=== PATIENT | male | born 1990 | race Caucasian/White ===

== ENCOUNTER 2020-08-05 19:58 | Emergency (ER) | payer OTHER, SELFPAY ==
[2020-08-05 20:46] VITALS: BP 134/48; PULSE 79; RESP 16; TEMP 36.6; O2SAT 98; BMI 27.3
--- NOTE | 2020-08-05 21:25 | ED_ITS ---
HPI - Skin/Abscess/Foreign Bdy General Chief complaint: Skin/Abscess/Foreign Body Stated complaint: abcess Time Seen by Provider: 08/05/20 21:25 Source: patient Mode of arrival: ambulatory Limitations: no limitations History of Present Illness HPI narrative: Cyst on my back for the past 3 days becoming tender. No fever, no chills. Related Data Previous Rx's Medication Instructions Recorded doxycycline hyclate 100 mg PO BID #14 cap 08/05/20 Allergies Allergy/AdvReac Type Severity Reaction Status Date / Time No Known Allergies Allergy Verified 08/05/20 20:51 [No Known Allergies*] Review of Systems Review of Systems: All other systems are reviewed and are negative Constitutional: Reports as per HPI and Reports no additional constitutional complaints Eyes: Reports as per HPI and Reports no additional eye complaints Reports system reviewed and no additional complaints, except as documented Cardiovascular: Reports as per HPI and Reports no additional cardiovascular complaints Respiratory: Reports as per HPI and Reports no additional respiratory complaints Gastrointestinal: Reports as per HPI and Reports no additional gastrointestinal complaints Genitourinary: Reports no additional female genitourinary complaints Musculoskeletal: Reports no additional musculoskeletal complaints Skin/Breast: Reports system reviewed and no additional complaints, except as docu Psychiatric: Reports no additional psychiatric complaints Endocrine: Reports no additional endocrine complaints Hematologic/Lymphatic: Reports no additional hematologic/lymphatic complaints Allergic/Immunologic: Reports no additional allergic/immunologic complaints Reports system reviewed and no additional complaints, except as documented and Reports Abnormal speech present [facility] Past Medical History Medical History No known health problems Social History Social History Advance Directives: No Advance Directives Information Provided: No Physical Exam Vital Signs: Vital Signs: Last Vital Signs Temp 97.9 F 08/05/20 20:46 Pulse 79 08/05/20 20:46 Resp 16 08/05/20 20:46 BP 134/48 L 08/05/20 20:46 Pulse Ox 98 08/05/20 20:46 Body Mass Index 27.3 Vital signs have been reviewed as normal and appeared to be correct. Blood pressure normal. Heart rate normal. Respiration rate normal. Temperature normal. Oxygen saturation normal. Appearance: Alert. Oriented X3. No acute distress. Head: Normal external exam. Normocephalic. Atraumatic. No Hughes signs noted. No raccoon eyes noted Eyes: PERRLA. EOMI. Conjunctiva and sclera normal. Eyelids normal. ENT: EAC normal. TM's Normal. Pharynx normal. Uvula midline. Moist mucous membranes. No trismus noted. No drooling noted. No muffled voice noted. Neck: Normal inspection. Neck supple. FROM. No adenopathy. Thyroid Normal. No meningeal signs. No neck mass noted. CVS: Normal heart rate and rhythm. Heart sound normal. No murmurs noted. Pulses normal throughout. Respiratory: No respiratory distress. Painless inspiration. Breath sounds normal. No wheezes/rales/rhonchi noted. Chest nontender. No accessory muscle usage noted or decreased air movement noted. Abdomen: Soft and nontender. Bowel sounds normal in all 4 quadrants. No distention noted. No organomegaly noted. No visible injury noted. Back: No CVA tenderness. Full range of motion noted. 3 x 5 cm area of soft cyst, with mild tenderness to touch, no discharge, no redness of the skin above it, no hotness or redness of the skin above it. Tarpley to be infected sebaceous cyst Skin: Skin warm and dry. Normal skin color. Normal skin turgor. No rashes/lesions/lacerations noted. Extremities: No lower extremity edema. Extremities exhibit normal range of motion. Extremities nontender. Neuro: Oriented X 3. No motor deficit. No sensory deficit. Reflexes normal. Course Course Course Narrative: Assessment and plan. 30-year-old male with infected sebaceous cyst. Will start patient on doxycycline and referred to General surgery for complete excision of the cyst. Discharge Plan Discharge Clinical Impression: Infected sebaceous cyst of skin Patient Disposition: Home, Self-Care Instructions: Cyst (ED) Prescriptions: New doxycycline hyclate 100 mg capsule 100 mg PO BID Qty: 14 RF: 0 Referrals: Brendon Donald MD [Physician] - 2 days
== END 2020-08-05 22:06 | disposition home or self-care (01) ==
PROVIDERS: Emergency Provider Emergency Medicine; PCP Family Medicine
DX: L72.3 Sebaceous cyst (principal); M54.9 Dorsalgia, unspecified
CPT/HCPCS: 99283

== ENCOUNTER 2020-08-07 15:45 | Outpatient (REF) | payer OTHER, SELFPAY | END 2020-08-07 15:46 | disposition home or self-care (01) | LOC: HO.LNP 15:45 | PROVIDERS: PCP Family Medicine; Visit Provider Surgery | DX: L72.0 Epidermal cyst (principal) | CPT/HCPCS: 11403; 99202 ==

== ENCOUNTER 2020-08-08 10:24 | Outpatient (REF) | payer SELFPAY | END 2020-08-08 10:25 | disposition home or self-care (01) | LOC: HO.LAB 10:24 | PROVIDERS: Visit Provider Surgery | DX: L72.0 Epidermal cyst (principal) | CPT/HCPCS: 88304 ==

== ENCOUNTER → 2020-08-22 11:29 | Outpatient (BNVA) | payer OTHER, SELFPAY | PROVIDERS: PCP Family Medicine; Visit Provider Surgery | DX: L72.0 Epidermal cyst (principal) | CPT/HCPCS: 99212 ==

== ENCOUNTER 2021-01-06 10:21 | Outpatient (REF) | payer SELFPAY ==
--- NOTE | ~2021-01-06 | XR_ITS ---
EXAMINATION: XR BILATERAL KNEES XR LUMBAR SPINE CLINICAL INFORMATION: Pain. COMPARISON: Knee studies of 09/16/2018. TECHNIQUE: 4 views of each knee and 3 view lumbar spine. FINDINGS: Lumbar Spine: Bony texture and alignment appears unremarkable. No acute fracture, spondylolisthesis, spondylolysis identified. Disc spaces are maintained. Sacroiliac joints unremarkable. Right Knee: There is no evidence of acute fracture or dislocation of the right knee. No right knee effusion is noted. Joint spaces are maintained. Left Knee: There is no evidence of acute fracture or dislocation of the left knee. No left knee effusion is seen. Left knee joint spaces are maintained. There appears to be some edematous change about the site of insertion of the patellaR tendon on the anterior tibial tuberosity with the appearance of Sangeeta-Schlatter's disease. XR/XR knee RT 4V IMPRESSION: Normal lumbar spine study. Normal right knee study. Left knee findings consistent with Sangeeta-Schlatter's disease.
--- NOTE | ~2021-01-06 | XR_ITS ---
EXAMINATION: XR BILATERAL KNEES XR LUMBAR SPINE CLINICAL INFORMATION: Pain. COMPARISON: Knee studies of 09/16/2018. TECHNIQUE: 4 views of each knee and 3 view lumbar spine. FINDINGS: Lumbar Spine: Bony texture and alignment appears unremarkable. No acute fracture, spondylolisthesis, spondylolysis identified. Disc spaces are maintained. Sacroiliac joints unremarkable. Right Knee: There is no evidence of acute fracture or dislocation of the right knee. No right knee effusion is noted. Joint spaces are maintained. Left Knee: There is no evidence of acute fracture or dislocation of the left knee. No left knee effusion is seen. Left knee joint spaces are maintained. There appears to be some edematous change about the site of insertion of the patellaR tendon on the anterior tibial tuberosity with the appearance of Sangeeta-Schlatter's disease. XR/XR knee LT 4V IMPRESSION: Normal lumbar spine study. Normal right knee study. Left knee findings consistent with Sangeeta-Schlatter's disease.
--- NOTE | ~2021-01-06 | XR_ITS ---
EXAMINATION: XR BILATERAL KNEES XR LUMBAR SPINE CLINICAL INFORMATION: Pain. COMPARISON: Knee studies of 09/16/2018. TECHNIQUE: 4 views of each knee and 3 view lumbar spine. FINDINGS: Lumbar Spine: Bony texture and alignment appears unremarkable. No acute fracture, spondylolisthesis, spondylolysis identified. Disc spaces are maintained. Sacroiliac joints unremarkable. Right Knee: There is no evidence of acute fracture or dislocation of the right knee. No right knee effusion is noted. Joint spaces are maintained. Left Knee: There is no evidence of acute fracture or dislocation of the left knee. No left knee effusion is seen. Left knee joint spaces are maintained. There appears to be some edematous change about the site of insertion of the patellaR tendon on the anterior tibial tuberosity with the appearance of Sangeeta-Schlatter's disease. XR/XR lumbar spine 2-3V IMPRESSION: Normal lumbar spine study. Normal right knee study. Left knee findings consistent with Sangeeta-Schlatter's disease.
== END 2021-01-06 10:22 | disposition home or self-care (01) ==
LOC: HO.XRAY 10:21
PROVIDERS: PCP Family Medicine; Visit Provider Family Medicine
DX: M25.561 Pain in right knee (principal); M25.562 Pain in left knee; M54.5 Low back pain
CPT/HCPCS: 72100; 73564

== ENCOUNTER 2022-10-28 09:24 | Outpatient (REF) | payer OTHER, SELFPAY ==
--- NOTE | ~2022-10-28 | US_ITS ---
EXAMINATION: US ABDOMEN COMPLETE CLINICAL INFORMATION: Elevated LFTs. COMPARISON: None available. TECHNIQUE: Real-time imaging of the abdominal viscera. FINDINGS: PANCREAS: The pancreas is obscured by bowel gas. ABDOMINAL AORTA: The proximal, mid, and distal segments are normal in caliber. INFERIOR VENA CAVA: Visualized portions are normal. LIVER: The liver is normal in size. The liver contour is normal. Parenchymal echogenicity is normal. No focal hepatic lesion. There is no intrahepatic biliary duct dilatation seen. GALLBLADDER: Normal. The gallbladder is physiologically distended without evidence of stones, sludge, polyps, wall thickening or pericholecystic fluid. COMMON BILE DUCT: Normal in caliber measuring 0.5 cm in diameter. RIGHT KIDNEY: Normal. No hydronephrosis. No renal calculi or focal parenchymal lesions. The kidney measures 10.5 cm in maximum dimension. LEFT KIDNEY: Normal. No hydronephrosis. No renal calculi or focal parenchymal lesions. The kidney measures 11.9 cm in maximum dimension. SPLEEN: Normal. The spleen measures 10.8 cm in maximum dimension. FREE FLUID: None. US/US abdomen complete IMPRESSION: The pancreas is obscured by bowel gas. Otherwise normal abdominal ultrasound.
== END 2022-10-28 09:25 | disposition home or self-care (01) ==
LOC: HO.HMGCX 09:24
PROVIDERS: PCP Family Medicine; Visit Provider Family Medicine
DX: R79.89 Other specified abnormal findings of blood chemistry (principal)
CPT/HCPCS: 76700

== ENCOUNTER 2023-01-26 10:09 | Outpatient (REF) | payer OTHER, SELFPAY ==
--- NOTE | ~2023-01-26 | XR_ITS ---
EXAMINATION: XR LUMBOSACRAL SPINE CLINICAL INFORMATION: Chronic low back pain, no sciatica, back pain for 5 months COMPARISON: 01/06/2021. TECHNIQUE: Four views of the lumbosacral spine. FINDINGS: Slight levoscoliosis of the lumbar spine. Small pelvic calcifications are likely vascular. Lumbar vertebral body heights are preserved. Mild multilevel lumbar spondylosis. Facet arthritis at L5-S1. XR/XR lumbar spine 2-3V IMPRESSION: Mild multilevel lumbar spondylosis. Additional imaging with CT scan or MRI should be considered for better visualization as these modalities are much more sensitive for detection of fracture or other underlying pathology.
== END 2023-01-26 10:10 | disposition home or self-care (01) ==
LOC: HO.HHCX 10:09
PROVIDERS: Visit Provider Family Medicine
DX: M54.50 Low back pain, unspecified (principal); G89.29 Other chronic pain
CPT/HCPCS: 72100

== ENCOUNTER 2023-10-04 10:21 | Emergency (ER) | payer OTHER, SELFPAY ==
--- NOTE | ~2023-10-04 | US_ITS ---
EXAMINATION: US ABDOMEN LIMITED CLINICAL INFORMATION: Right upper quadrant pain, gallbladder with common bile duct only. COMPARISON: Ultrasound abdomen of 10/30/2022. TECHNIQUE: Real-time imaging of the gallbladder and common bile duct only obtained as per requesting provider. FINDINGS: GALLBLADDER: No gallstones appreciated. No gallbladder wall thickening. No pericholecystic fluid. Limited visualization due to bowel gas. COMMON BILE DUCT: Normal in caliber measuring 0.25 cm in diameter. US/US abdomen limited IMPRESSION: No gallstones, gallbladder wall thickening or para cholecystic fluid identified. This study was presented today October 04, 2023 for interpretation. Stat results provided at this time as requested by referring provider.
--- NOTE | ~2023-10-04 | XR_ITS ---
EXAMINATION: XR CHEST CLINICAL INFORMATION: Pain with movement COMPARISON: None available. TECHNIQUE: Frontal view of the chest was obtained. FINDINGS: No significant abnormality is noted involving the heart, lungs, mediastinum, bony thorax or soft tissues. XR/XR chest 1V IMPRESSION: No acute process.
[2023-10-04 11:01] VITALS: BP 144/77; PULSE 83; RESP 19; O2SAT 98; BMI 31.1
[2023-10-04 11:22] LABS: MANUAL DIFF FLAG NO
[2023-10-04 11:24] LABS: Basophils Absolute Auto 0.1 X10*3/uL (0.0-0.2); Basophils Percent Auto 0.4 % (0-2); Eosinophils Absolute Auto 0.1 X10*3/uL (0.0-0.4); Eosinophils Percent Auto 0.7 % (0-4); Hematocrit 49.7 % (42.0-52.0); Hemoglobin 17.1 g/dl (14.0-18.0); Imm Gran Abs Auto 0.05 X10*3/uL (0.00-0.03); Imm Gran Pct Auto 0.4 % (0.0-0.4); Lymphocytes Absolute Auto 2.4 X10*3/uL (1.2-4.9); Lymphocytes Percent Auto 19.2 % (20-40); Mean Corpuscular HGB Conc 34.4 g/dl (31.0-36.0); Mean Corpuscular Hemoglobin 31.6 pg (27.0-33.0); Mean Corpuscular Volume 91.9 fL (80.0-98.0); Mean Platelet Volume 9.1 fL (9.4-12.4); Monocytes Absolute Auto 0.7 X10*3/uL (0.1-1.2); Monocytes Percent Auto 5.7 % (2-11); Neutrophils Absolute Auto 9.2 x10*3/uL (2.0-8.3); Neutrophils Percent Auto 73.6 % (45-73); Platelet Count 328 X10*3/uL (160-400); Red Blood Count 5.41 X10*6/uL (4.60-5.80); Red Cell Distribution Width 12.1 % (11.0-16.0); White Blood Count 12.5 X10*3/uL (4.8-10.8)
[2023-10-04 11:26] LABS: Appearance Urine Clear; Color Urine Yellow; Glucose Urine UA Negative (Negative); Leukocyte Esterase Urine Negative (Negative); Nitrite Urine Negative (Negative); Specific Gravity - Urine 1.015 (1.005-1.025); UMIC TRIGGER UACC YES; Urine Blood Trace (Negative); Urine Ketones Negative (Negative); Urine Protein Negative (Neg-Trace)
[2023-10-04 11:33] LABS: Bacteria Urine None Seen (None Seen); Hyaline Casts Urine 0-2 /LPF (0-2); RBC Urine 0-2 /HPF (0-2); Squamous Epithelial Cell Urine 0-2 /HPF (0-2); WBC Urine 0-5 /HPF (0-5)
[2023-10-04 11:46] LABS: Alanine Aminotransferase 40 U/L (0-40); Albumin Level 4.7 g/dL (3.5-5.0); Alkaline Phosphatase 104 U/L (39-117); Anion Gap 10 (12-20); Aspartate Amino Transferase 27 U/L (5-37); Bilirubin Direct 0.2 mg/dL (0.0-0.5); Bilirubin Total 0.4 mg/dL (0.0-1.0); Blood Urea Nitrogen 11 mg/dL (9-16); Calcium 10.2 mg/dL (8.4-10.2); Carbon Dioxide 27 mmol/L (22-29); Chloride 106 mmol/L (96-108); Creatinine Clr Calc Pharmacy 130.4; Estimated Glomerular Filt Rate > 60; Glucose Random 94 mg/dL (60-115); Lipase 15 U/L (8-78); Potassium 3.9 mmol/L (3.3-5.1); Sodium 139 mmol/L (135-145); Total Protein 8.3 g/dL (6.5-8.0)
[2023-10-04 20:50] VITALS: BP 141/86; PULSE 73; RESP 16; TEMP 36.4; O2SAT 98
--- NOTE | 2023-10-04 21:20 | ED.ABDPAIN ---
HPI - Abdominal Pain General Chief Complaint: Abdominal Pain Stated Complaint: r side pain Time Seen by Provider: 10/04/23 21:14 Source: patient Mode of arrival: ambulatory Limitations: no limitations History of Present Illness HPI narrative: Patient apparently fell while playing basketball last week landed on right ribs since then complaining of pain which increases on deep breaths no shortness of breath nausea vomiting no abdominal pain Related Data Previous Rx's Medication Instructions Recorded doxycycline hyclate 100 mg capsule 100 mg PO BID #14 caps 08/05/20 ibuprofen 600 mg tablet 600 mg PO Q6H PRN fever or pain 10/04/23 #30 tabs tramadol 50 mg tablet 50 mg PO Q6H PRN pain #20 tabs 10/04/23 Allergies Allergy/AdvReac Type Severity Reaction Status Date / Time No Known Allergies Allergy Verified 08/05/20 20:51 [No Known Allergies*] Review of Systems Review of Systems Yes all other systems are reviewed and are negative [facility] Past Medical History Medical History Ruptured epidermal cyst No known health problems Family History Family History Paternal Grandfather History of cancer Maternal Grandmother History of cancer Social History Social History Alcohol intake: never Advance Directives: No Advance Directives Information Provided: No Physical Exam ED Vital Signs: Vital Signs - 24 hr 10/04/23 11:01 10/04/23 20:50 Temperature 97.6 F Pulse Rate 83 73 Respiratory Rate 19 16 Blood Pressure 144/77 H 141/86 H Pulse Oximetry 98 98 Oxygen Delivery Method Room Air Room Air BMI result Body Mass Index 31.1 Appearance: Alert. Oriented X3. No acute distress. ENT: Pharynx normal. Oral Mucosa moist Neck: Normal inspection. Neck supple. CVS: Normal heart rate and rhythm. Pulses normal. Respiratory: No respiratory distress. Local tenderness right lower ribs Equal air entry bilateral, no wheezing/rales/rhonchi Abdomen: Soft and nontender. Bowel sounds are present, no mass palpable, no CVA tenderness Skin: Skin warm and dry. Normal skin color. Normal skin turgor. Extremities: No lower extremity edema. No calf tenderness Neuro: Oriented X 3. Medical Decision Making Medical Decision Making [facility] Narrative: Patient with right lower rib pain x-ray negative for rib fractures clinically patient rib contusion/microfracture discharge patient on pain ultrasound negative for cholelithiasis Differential Diagnosis Differential Diagnoses: The differential diagnosis associated with the presentation includes Right rib fracture right rib contusion lung injury cholelithiasis Lab Data [facility] Lab Attestation statement: I reviewed the patient's lab results. 10/04/23 11:18 10/04/23 11:18 Labs: Lab Results 10/04/23 Range/Units 11:18 WBC 12.5 H (4.8-10.8) X10*3/uL RBC 5.41 (4.60-5.80) X10*6/uL Hgb 17.1 (14.0-18.0) g/dl Hct 49.7 (42.0-52.0) % MCV 91.9 (80.0-98.0) fL MCH 31.6 (27.0-33.0) pg MCHC 34.4 (31.0-36.0) g/dl RDW 12.1 (11.0-16.0) % Plt Count 328 (160-400) X10*3/uL MPV 9.1 L (9.4-12.4) fL Immature Gran % (Auto) 0.4 (0.0-0.4) % Neut % (Auto) 73.6 H (45-73) % Lymph % (Auto) 19.2 L (20-40) % [place] % (Auto) 5.7 (2-11) % Eos % (Auto) 0.7 (0-4) % Baso % (Auto) 0.4 (0-2) % Lymph # (Auto) 2.4 (1.2-4.9) X10*3/uL [place] # (Auto) 0.7 (0.1-1.2) X10*3/uL Eos # (Auto) 0.1 (0.0-0.4) X10*3/uL Baso # (Auto) 0.1 (0.0-0.2) X10*3/uL Abs Immat Gran (auto) 0.05 H (0.00-0.03) X10*3/uL Absolute Neuts (auto) 9.2 H (2.0-8.3) x10*3/uL Absolute Nucleated RBC 0.000 (0.0-0.012) X10*3/uL Nucleated RBC % (auto) 0.0 (0.0-0.2) /100WBC Sodium 139 (135-145) mmol/L Potassium 3.9 (3.3-5.1) mmol/L Chloride 106 (96-108) mmol/L Carbon Dioxide 27 (22-29) mmol/L Anion Gap 10 L (12-20) BUN 11 (9-16) mg/dL Creatinine 0.91 (0.5-1.4) mg/dL Estim Creat Clear Calc 130.4 Estimated GFR > 60 Random Glucose 94 (60-115) mg/dL Calcium 10.2 (8.4-10.2) mg/dL Total Bilirubin 0.4 (0.0-1.0) mg/dL Direct Bilirubin 0.2 (0.0-0.5) mg/dL AST 27 (5-37) U/L ALT 40 (0-40) U/L Alkaline Phosphatase 104 (39-117) U/L Total Protein 8.3 H (6.5-8.0) g/dL Albumin 4.7 (3.5-5.0) g/dL Lipase 15 (8-78) U/L Urine Color Yellow Urine Appearance Clear Urine pH 6.0 (5.0-9.0) Ur Specific [place] 1.015 (1.005-1.025) Urine Protein Negative (Neg-Trace) mg/dL Urine Glucose (UA) Negative (Negative) mg/dL Urine Ketones Negative (Negative) mg/dL Urine Blood Trace (Negative) Urine Nitrite Negative (Negative) Ur Leukocyte Esterase Negative (Negative) Urine RBC 0-2 (0-2) /HPF Urine WBC 0-5 (0-5) /HPF Ur Squamous Epith Cells 0-2 (0-2) /HPF Urine Bacteria None Seen (None Seen) Hyaline Casts 0-2 (0-2) /LPF Independent Interpretation I performed an independent interpretation of an: Plain X-Ray and Ultrasound Radiology Impression Discussion of test interpretation with radiology: I have reviewed the radiologist's reading. Medications Administered Discontinued Medications Generic Name Dose Route Start Last Admin Trade Name Freq PRN Reason Stop Dose Admin Tramadol HCl 50 mg 10/04/23 21:48 10/04/23 22:18 Tramadol Hcl 50 Mg Tablet PO 10/04/23 21:49 50 mg ONCE ONE Administration Discharge Plan Discharge Clinical Impression: Contusion of rib on right side Patient Disposition: Home, Self-Care Instructions: Contusion in Adults (ED) Additional Instructions: You have rib contusion on the right side your x-rays negative for fracture Take pain medication as prescribed Prescriptions: New tramadol 50 mg tablet 50 mg PO Q6H PRN (Reason: pain) Qty: 20 0RF ibuprofen 600 mg tablet 600 mg PO Q6H PRN (Reason: fever or pain) Qty: 30 0RF No Action doxycycline hyclate 100 mg capsule 100 mg PO BID Qty: 14 0RF
[2023-10-04] MEDS: traMADoL HCL 50 MG TABLET PO (22:18)
[2023-10-04 22:48] VITALS: BP 141/86; PULSE 73; RESP 16; TEMP 36.4; O2SAT 98
== END 2023-10-04 23:00 | disposition home or self-care (01) ==
PROVIDERS: Emergency Provider Internal Medicine; PCP Family Medicine
DX: S20.211A Contusion of right front wall of thorax, initial encounter (principal); W18.30XA Fall on same level, unspecified, initial encounter; Y93.67 Activity, basketball; Y92.9 Unspecified place or not applicable; Y99.9 Unspecified external cause status
CPT/HCPCS: 36415; 71045; 76705; 80048; 80076; 81001; 83690; 85025; 99284

== ENCOUNTER 2024-10-10 12:28 | Outpatient (REF) | payer OTHER, SELFPAY ==
--- NOTE | ~2024-10-10 | XR_ITS ---
EXAMINATION: XR LUMBOSACRAL SPINE CLINICAL INFORMATION: acute LBP radiating to b/l sides x 2 weeks COMPARISON: 01/26/2023 TECHNIQUE: 6 views of the lumbar spine, inclusive of bilateral oblique views, were obtained. FINDINGS: Minimal levoconvex scoliosis. Normal lordosis. No fracture, compression deformity, or suspicious bone lesion. There is a trace 2 mm degenerative retrolisthesis of L2 on L3. Alignment is otherwise normal. Minimal disc space narrowing noted at L1-2, L2-3, and L5-S1. Discs otherwise normal. Normal facet alignment. Mild degenerative facet changes L4-S1. There are no pars defects. The sacrum and SI joints appear normal. No soft tissue abnormalities. XR/XR lumbar spine 4V min IMPRESSION: 1. No acute findings lumbar spine. 2. Very mild degenerative changes. Electronically signed by: Gustavo Cole MD 10/10/2024 01:12 PM EDT
--- OUTSIDE RECORDS SUMMARY | 2024-10-10 14:38 | XMS_ITS | Encounter Summary ---
Author Organization [employer] Address [address] [place] [address] Care Team Providers Care Car Mechanic Name Role Phone StephenLuci comer Primary Care Provider + [phone] Encounter Details Date Type Department Care Team (Latest Contact Info) Description 10/10/2024 Travel Social History Tobacco Use Types Packs/Day Years Used Date Smoking Tobacco: Never Passive Smoke Exposure: Never Smokeless Tobacco: Never Alcohol Use Standard Drinks/Week Comments Yes 0 (1 standard drink = 0.6 oz pur e alcohol) Alcohol Answer Date Recorded Q1: How often do you have a drink containing alc ohol? 2 10/10/2024 Q2: How many drinks containi ng alcohol do you have on a typical day when you are drinking? 1 10/10/2024 Q3: How often do you have six or more drinks on one occasion? 3 10/10/2024 Depression Answer Date Recorded Patient Health Questionnaire-9 Score 0 10/10/2024 Patient Health Questionnaire-9 Score 0 10/10/2024 Last PHQ-9: Questionnaire Data Not on file 0 10/10/2024 Housing Stability Answer Date Recorded What is your housing situation today? I have [employer] 10/10/[address] you li ve. Do you have problems with any of the following? None of the above 10/10/2024 Food Insecurity Answer Date Recorded Within the past 12 months, y ou worried that your food would run out before you got money to buy more: Never True 10/10/2024 Within the past 12 months,th e food you bought just didn't last and you didn't have enough money to get more: Never True 07/2024 Transportation Answer Date Recorded In the past 12 months, has l ack of transportation kept you from medical appts, meetings, work or from getting things needed for daily living? No 10/10/2024 Utilities Answer Date Recorded In the past 12 months, has t he electric, gas, oil or water company threatened to shut off services in your home? No 10/10/2024 Depression Answer Date Recorded Patient Health Questionnaire-2 Score 0 10/10/2024 Internet Access Answer Date Recorded Internet Access Q1 Yes 10/10/2024 Internet Access Q2 Not on file 10/10/2024 Sex and Gender Information Value Date Recorded Sex Assigned at Male 05/11/2022 10:35 AM EDT Legal Sex Male 10:35 AM EDT Gender Identity Male 05/11/2022 10:35 AM EDT Sexual Orientation Choose not to disclose 2021 10:35 AM EDT documented as of this encounter Plan of Treatment Not on file documented as of this encounter Visit Diagnoses Not on filedocumented in this encounter Additional Health Concerns Assessment Noted Time PHQ-9 Depression Total Score: 0 10/11/19 25 11:40 AM EDT documented as of this encounter Care Teams Car Mechanic Relationship Specialty Start Date End Date Luci Dumont DO [address] [place] [id number] PCP - General Family Medicine 07/12/18 documented as of this encounter
--- OUTSIDE RECORDS SUMMARY | 2024-10-10 14:38 | XMS_ITS | Clinical Summary ---
Author Organization [employer] Address [address] [facility] [address] [place] [address] Care Team Providers Care Global Product Manager Name Role Phone JuliaLuci Primary Care Provider [phone] Allergies No known active allergies Medications albuterol 108 (90 Base) MCG/ACT inhaler Inhale 2 puffs every 4 (four) hours if needed for wheezing or shortness of breath. 18 g 1 08/06/19 24 Active naproxen (Naprosyn) 500 MG tablet Take 1 tablet (500 mg) by mouth if needed in the morning and at bedtime for mild pain. 40 tablet 1 10/11/19 25 Active Diclofenac Sodium 1 % gel Apply 2 g topically if needed in the morning, at noon, in the evening, and at bedtime (pain). 150 g 3 10/11/19 25 Active baclofen (Lioresal) 10 MG tablet Take 1 tablet (10 mg) by mouth if needed in the morning, at noon, and at bedtime for muscle spasms. Take 1 tablet by mouth in the morning and 1 tablet at noon and 1 tablet in the evening. 60 tablet 1 10/11/19 25 Active acetaminophen (Tylenol 8 Hour) 650 MG ER tablet Take 1 tablet (650 mg) by mouth every 8 (eight) hours if needed for mild pain. 40 tablet 1 10/11/19 25 Active ketoconazole (Nizoral) 2 % shampoo Apply topically 2 (two) times a week. 120 mL 2 01/29/20 23 025 Discontinued acetaminophen (Tylenol 8 Hour) 650 MG ER tablet Take 1 tablet (650 mg) by mouth every 8 (eight) hours if needed for mild pain. 40 tablet 1 01/27/20 23 025 Discontinued(Re order (will not trigger notification to Pharmacy)) baclofen (Lioresal) 10 MG tablet Take 1 tablet (10 mg) by mouth if needed in the morning, at noon, and at bedtime for muscle spasms. Take 1 tablet by mouth in the morning and 1 tablet at noon and 1 tablet in the evening. 60 tablet 1 01/27/20 23 025 Discontinued(Re order (will not trigger notification to Pharmacy)) Diclofenac Sodium 1 % gel Apply 2 g topically if needed in the morning, at noon, in the evening, and at bedtime (pain). 150 g 3 01/27/20 025 Discontinued(Re order (will not trigger notification to Pharmacy)) naproxen (Naprosyn) 500 MG tablet Take 1 tablet (500 mg) by mouth if needed in the morning and at bedtime for mild pain. 40 tablet 1 01/27/20 025 Discontinued(Re order (will not trigger notification to Pharmacy)) Blood Pressure kit 1 each 1 (one) time per week. 1 kit 08/06/19 24 025 Discontinued Omeprazole 20 MG tablet delayed-releas e Take 20 mg by mouth before breakfast. 30 tablet 5 08/09/19 24 025 Discontinued Active Problems Problem Noted Date Diagnosed Date Thrombocytosis 10/16/2022 Chronic bilateral low back pain without sciatica 10/16/2022 Vitamin D deficiency 09/20/2018 Resolved Problems Problem Noted Date Diagnosed Date Resolved Date Elevated LFTs 10/16/2022 08/06/2023 Encounters Date Type Department Care Team Description 10/10/2024 11:30 AM EDT Office Visit [facility] [address] [place] [phone] Luci Dumont DO Acute bilateral low back pain without sciatica (Primary Dx); Swelling of both lower extremities; Urinary frequency; BMI 30.0-30.9,adult 10/10/2024 Travel 10/10/2024 Telephone [facility] [address] [place] [phone] Jurcsak, Luci, DO Nurse Triage from Last 3 Months Immunizations Name Administration Dates Next Due Influenza injectable quadrivalent preservative f ree 09/16/2018 MMR 04/10/2022 Tdap 09/16/2018 Varicella 04/10/2022 Social History Tobacco Use Types Packs/Day Years Used Date Smoking Tobacco: Never Passive Smoke Exposure: Never Smokeless Tobacco: Never Tobacco Cessation:Counseling Given: Not Answered Alcohol Use Standard Drinks/Week Comments Yes 0 [...] not to disclose 2021 10:35 AM EDT Last Filed Vital Signs Vital Sign Reading Time Taken Comments Blood Pressure 118/82 10/10/2024 11:38 AM EDT Pulse 70 10/10/2024 11:38 AM EDT Temperature 36.3 ??C (97.3 ??F) 10/10/2024 11:38 AM E DT Respiratory Rate 17 10/10/2024 11:38 AM EDT Oxygen Saturation 98% 08/06/2023 10:27 AM EST Inhaled Oxygen Concentration - - Weight 91.2 kg (201 lb 2 oz) 10/10/2024 11:38 AM EDT Height 172.3 cm (5' 7.82 ) 10/10/2024 11:38 AM E DT Body Mass Index 30.75 10/10/2024 11:38 AM EDT Plan of Treatment Health Maintenance Due Date Last Done Comments Family Planning (PISQ) 2004 Hepatitis B Vaccines (1 of 3 - 19+ 3-dose series) 2008 COVID-19 Vaccine ( - 2023-2 5 season) 2024 Influenza Vaccine (#1) 2024 09/16/2018 Alcohol/Substance Use Screening 10/10/2025 10/10/2024 Depression Screening 10/10/2025 10/10/2024, 10/10/2024 SDOH Screening 10/10/2025 10/10/2024 Tobacco Screening 10/10/2025 10/10/2024 Lipid Panel 10/17/2027 10/16/2022, 01/06/2021 DTaP/Tdap/Td Vaccines (2 - T d or Tdap) 09/16/2028 09/16/2018 Zoster Vaccines (1 of 2) 2039 RSV Patients and Patients Aged 60 years or older (1 - 1-dose 75+ series) 2064 HIV Screening Completed 10/16/2022, 01/06/2021 Hepatitis C Screening Completed 10/16/2022 , 01/06/2021 HIB Vaccines Aged Out No longer eligi ble based on patient's age to complete this topic HPV Vaccines Aged Out No longer eligi ble based on patient's age to complete this topic Hepatitis A Vaccines Aged Out No long er eligible based on patient's age to complete this topic IPV Vaccines Aged Out No longer eligi ble based on patient's age to complete this topic Meningococcal Vaccine Aged Out No ronna tino eligible based on patient's age to complete this topic Pneumococcal Vaccine: Pediatrics (0 to 5 Years) and At-Risk Patients (6 to 49) Years) Aged Out No longer eligible b ased on patient's age to complete this topic RSV under 20 months Aged Out No longe r eligible based on patient's age to complete this topic Rotavirus Vaccines Aged Out No longer eligible based on patient's age to complete this topic Procedures Procedure Name Priority Date/Time Associated Diagnosis Comments POCT URINALYSIS DIPSTICK Routine 10/10/2024 12:29 PM EDT Urinary frequency XR LUMBAR SPINE COMPLETE 4+ VIEWS Routine 10/10/2024 12:28 PM EDT HEPATITIS C AB W/RFL RNA, PCR W/RFL GENOTYPE,LIPA Routine 10/16/2022 10:17 AM EDT Encounter for routine adult health examination without abnormal findings HIV 1/2 ANTIGEN/ANTIBODY, FOURTH GENERATION W/RFL Routine 10/16/2022 10:17 AM EDT Encounter for routine adult health examination without abnormal findings LIPID PANEL, STANDARD Routine 10/16/2022 10:17 AM EDT Encounter for routine adult health examination without abnormal findings from Last 3 Months or Most Recently Relevant to Health Maintenance Results * POCT Urinalysis (10/10/2024 12:29 PM EDT) Color, UA Light Yellow Clarity, UA Clear Glucose, UA Negative Bilirubin, UA Negative Ketones, UA Negative Spec Grav, UA 1.015 Blood, UA Negative Negative, None Detected pH, UA 6.0 Protein, UA Negative Urobilinogen, UA 0.2 Leukocytes, UA Negative Negative, Rare, Trace Nitrite, UA Negative Negative, None Detected Appearance, UA clear QC Media Lot # [id number] Lot# Expiration Date [id number] Urine 10/10/2024 12:2 9 PM EDT us Luci Dumont DO POINT OF CARE TEST ENTER/CHARLIE T ORDERABLES Final Result * XR Lumbar Spine Complete 4+ Views (10/10/2024 12:28 PM EDT) Anatomical Region Laterality Modality Spine, L-spine Radiographic Sapna ging 10/10/2024 12:2 8 PM EDT Narrative 10/10/2024 1:15 PM EDT ?[facility] ?[address] ?[place] [address] ?XRay Report ? Signed ? Patient: John Lorenzo ?MR#: ?? [id number] ? : 1990 ?Acct:[id number] ? Age/Sex: 34 / M ?ADM Date: 10/10/24 ? Loc: HO.HHCX ? Attending Dr: Luci Dumont DO ? Ordering Physician: Luci Dumont DO ?? Date of Service: 10/10/24 ?? Procedure(s): XR lumbar spine 4V min ?? Accession Number(s): [id number] ? cc: Luci Dumont DO ? EXAMINATION: ?? XR LUMBOSACRAL SPINE ? CLINICAL INFORMATION: ?? acute LBP radiating to b/l sides x 2 weeks ? COMPARISON: ?? 01/26/2023 ? TECHNIQUE: ?? 6 views of the lumbar spine, inclusive of bilateral oblique views, were ?? obtained. ? FINDINGS: ?? Minimal levoconvex scoliosis. Normal lordosis. ?? No fracture, compression deformity, or suspicious bone lesion. ?? There is a trace 2 mm degenerative retrolisthesis of L2 on L3. ?? Alignment is otherwise normal. ?? Minimal disc space narrowing noted at L1-2, L2-3, and L5-S1. Discs ?? otherwise normal. ?? Normal facet alignment. Mild degenerative facet changes L4-S1. ?? There are no pars defects. ?? The sacrum and SI joints appear normal. ? No soft tissue abnormalities. ? XR/XR lumbar spine 4V min ?? IMPRESSION: ?? 1. No acute findings lumbar spine. ?? 2. Very mild degenerative changes. ? Electronically signed by: ??Gustavo Cole MD ??10/10/2024 01:12 PM EDT RP ? Dictated By: ?Gustavo Cole MD ? Signed By: ?<Electronically signed by Gustavo Cole MD in OV> ?10/10/24 1312 ? DD/ 1228 ? TD/TT: 10/10/24 1230 ? Palliative Care Specialist: ? Procedure Note Rosa, Zahra - 10/10/[address] [address] XRay Report Signed Patient: John LorenzoMR#: [id number] : 1990Acct:[id number] Age/Sex: 34 / MADM Date: 10/10/24 Loc: HO.HHCX Attending Dr: Luci Dumont DO Ordering Physician: Luci Dumont DO Date of Service: 10/10/24 Procedure(s): XR lumbar spine 4V min Accession Number(s): [id number] cc: Luci Dumont DO EXAMINATION: XR LUMBOSACRAL SPINE CLINICAL INFORMATION: acute LBP radiating to b/l sides x 2 weeks COMPARISON: 01/26/2023 TECHNIQUE: 6 views of the lumbar spine, inclusive of bilateral oblique views, were obtained. FINDINGS: Minimal levoconvex scoliosis. Normal lordosis. No fracture, compression deformity, or suspicious bone lesion. There is a trace 2 mm degenerative retrolisthesis of L2 on L3. Alignment is otherwise normal. Minimal disc space narrowing noted at L1-2, L2-3, and L5-S1. Discs otherwise normal. Normal facet alignment. Mild degenerative facet changes L4-S1. There are no pars defects. The sacrum and SI joints appear normal. No soft tissue abnormalities. XR/XR lumbar spine 4V min IMPRESSION: 1. No acute findings lumbar spine. 2. Very mild degenerative changes. Electronically signed by: Gustavo Cole MD 10/10/2024 01:12 PM EDT Dictated By: Gustavo Cole MD Signed By: <Electronically signed by Gustavo Cole MD in OV> 10/10/24 1312 DD/ 1228 TD/TT: 10/10/24 1230 Palliative Care Specialist: Luci Dumont DO IMG XR PROCEDURES Final Resu lt * Hepatitis C Antibody with Reflex to HCV RNA,PCR w/Reflex to Genotype, LiPA (10/16/2022 10:17 AM EDT) Pathologist [facility] Hepatitis C Antibody NON-REACT BAO NON-REACT BAO [facility] [place] [facility] Index <0.02 <1.00 [facility] [place] [facility] Comment: HCV antibody was non-reactive. There is no laboratory evidence of HCV infection. In most cases, no further action is required. However, if recent HCV exposure is suspected, a test for HCV RNA (test code 29830) is suggested. For additional information, please refer to http://education.Traditional Medic[employer]/faq/YBP580 (This link is being provided for informational/ educational purposes only.) 10/16/2022 10:1 7 AM EDT 10/16/2022 10:18 AM EDT Narrative [facility] - 10/19/2022 10:16 AM EDT FASTING:YES FASTING: YES Luci Dumont DO LAB BLOOD ORDERABLES Final R esult [facility] [address], [place] [address] [facility] [place] [facility] [address] [place] [address] * HIV-1/2 Antigen and Antibodies, Fourth Generation, with Reflexes (10/16/2022 10:17 AM EDT) Pathologist [facility] HIV Antigen/Antibody, 4th Generation NON-REAC TIVE NON-REAC TIVE [facility] [place] [facility] Comment: HIV-1 antigen and HIV-1/HIV-2 antibodies were not detected. There is no laboratory evidence of HIV infection. PLEASE NOTE: This information has been disclosed to you from records whose confidentiality may be protected by state law. ??If your state requires such protection, then the state law prohibits you from making any further disclosure of the information without the specific written consent of the person to whom it pertains, or as otherwise permitted by law. A general authorization for the release of medical or other information is NOT sufficient for this purpose. ?? For additional information please refer to http://Catacel.GeoIQ/faq/MPW706 (This link is being provided for informational/ educational purposes only.) The performance of this assay has not been clinically validated in patients less than 2 years old. Blood Venous blood specimen / Unknown 10/16/2022 10:17 AM EDT 10/16/2022 10:18 AM EDT Narrative [facility] - 10/19/2022 10:16 AM EDT FASTING:YES FASTING: YES Luci Dumont DO LAB BLOOD ORDERABLES Final R esult [facility] [address], [place] [address] [facility] [place] [facility] [address] [place] [address] * (ABNORMAL) Lipid Panel, Standard (10/16/2022 10:17 AM EDT) Cholesterol, Total 193 <200 mg/dL [facility] [place] [facility] HDL Cholesterol 42 > OR = 40 mg/dL [facility] [place] [facility] Triglycerides 127 <150 mg/dL [facility] [place] [facility] LDL Cholesterol 127(H) mg/dL (calc) [facility] [place] [facility] Comment: Reference range: <100 Desirable range <100 mg/dL for primary prevention; ?? <70 mg/dL for patients with CHD or diabetic patients with > or = 2 CHD risk factors. LDL-C is now calculated using the Hernandez calculation, which is a validated novel method providing better accuracy than the Friedewald equation in the estimation of LDL-C. Timur DAWKINS et al. GWEN. 2013;310(19): 8701-6398 (http://education.Traditional Medicinals/faq/PET980) Chol/HDLC Ratio 4.6 <5.0 (calc) [facility] [place] [facility] Non-HDL Cholesterol 151(H) <130 mg/dL (calc) [facility] Comment: For patients with diabetes plus 1 major ASCVD risk factor, treating to a non-HDL-C goal of <100 mg/dL (LDL-C of <70 mg/dL) is considered a therapeutic option. Blood Venous blood specimen / Unknown 10/16/2022 10:17 AM EDT 10/16/2022 10:18 AM EDT Narrative [facility] - 10/19/2022 10:16 AM EDT FASTING:YES FASTING: YES Luci Dumont DO LAB BLOOD ORDERABLES Final R esult [facility] [address], [place] [address] [facility] [place] [facility] [address] [place] [address] from Last 3 Months or Most Recently Relevant to Health Maintenance Insurance Care Teams Global Product Manager Relationship Specialty Start Date End Date Luci Dumont DO [address] [place] [phone] PCP - General Family Medicine 07/12/18
--- OUTSIDE RECORDS SUMMARY | 2024-10-10 14:38 | XMS_ITS | Clinical Summary ---
Author Organization [employer] [facility] ity Address [address] [place] [address] Care Team Providers Care Co Founder And Ceo Name Role Phone Unavailable Primary Care Provider Unavailabl e Social History Tobacco Use Types Packs/Day Years Used Date Smoking Tobacco: Never Assessed Sex and Gender Information Value Date Recorded Sex Assigned at Not on file Legal Sex Male 11:35 PM EST Gender Identity Not on file Sexual Orientation Not on file Plan of Treatment Health Maintenance Due Date Last Done Comments DTaP,Tdap,and Td Vaccines (1 - Tdap) 2008 Hepatitis B Vaccines (1 of 3 - 19+ 3-dose series) 2008 COVID-19 Vaccine (2023-2 5 season) 2024 Influenza Vaccine (Season Ended) 2025 HIB Vaccines Aged Out No longer eligi [...] on patient's age to complete this topic MMR Vaccines Aged Out No longer eligi ble based on patient's age to complete this topic Meningococcal ACWY Vaccine Aged Out N o longer eligible based on patient's age to complete this topic Meningococcal B Vacine Aged Out No lo nger eligible based on patient's age to complete this topic Pneumococcal Vaccine: Pediat rics (0 to 5 Years) and At-Risk Patients (6 to 64 Years) Aged Out No longer eligible b ased on patient's age to complete this topic RSV Immunization Patients Un breann 20 months Aged Out No longer eligible b ased on patient's age to complete this topic Varicella Vaccines Aged Out No longer eligible based on patient's age to complete this topic
--- OUTSIDE RECORDS SUMMARY | 2024-10-10 14:38 | XMS_ITS | Encounter Summary ---
Author Organization [employer] Address [address] [facility] [address] [address] [facility] [place] [address] Care Team Providers Care Tinsmith Apprentice Name Role Phone Luci Dumont DO Primary Care Provider Reason for Referral * Consultation (Routine) - Pending Review Specialty Diagnoses / Procedures Referred By Contact Referred To Contact Physical Medicine and Rehabilitation Diagnoses Acute bilateral low back pain without sciatica Luci Dumont DO [address] [place] [address] Phone: tel: fax: Referral ID Status Reason Start Date Expiration Date Visits Requested Visits Authorized [id number] Pending Review Specialty Services Required 10/10/2024 10/10/2025 1 1 Reason for Visit * Reason Comments lower back pain Encounter Details Date Type Department Care Team (Late st Contact Info) Description 10/10/2024 11:30 AM EDT Office Visit [facility] [address] [place] [address] Luci Dumont DO [address] [place] [address] Acute bilateral low back pain without sciatica (Primary Dx); Swelling of both lower extremities; Urinary frequency; BMI 30.0-30.9,adult Social History Tobacco Use Types Packs/Day Years [...] AM EDT documented as of this encounter Last Filed Vital Signs Vital Sign Reading Time Taken Comments Blood Pressure 118/82 10/10/2024 11:38 AM EDT Pulse 70 10/10/2024 11:38 AM EDT Temperature 36.3 ??C (97.3 ??F) 10/10/2024 11:38 AM E DT Respiratory Rate 17 10/10/2024 11:38 AM EDT Oxygen Saturation - - Inhaled Oxygen Concentration - - Weight 91.2 kg (201 lb 2 oz) 10/10/2024 11:38 AM EDT Height 172.3 cm (5' 7.82 ) 10/10/2024 11:38 AM E DT Body Mass Index 30.75 10/10/2024 11:38 AM EDT documented in this encounter Plan of Treatment Scheduled Orders Name Type Priority Associated Diagnoses Orde r Schedule T4, Free Lab Routine BMI 30.0-30.9,adult Expected: 10/10/2024 (Approximate), Expires: 10/10/2025 Lipid Panel, Standard Lab Routine BMI 30.0-30.9,adult Expected: 10/10/2024 (Approximate), Expires: 10/10/2025 TSH Lab Routine BMI 30.0-30.9,adult Expected: 10/10/2024 (Approximate), Expires: 10/10/2025 Vitamin D, 25-Hydroxy, Total, Immunoassay Lab Routine BMI 30.0-30.9,adult Expected: 10/10/2024 (Approximate), Expires: 10/10/2025 Hepatic Function Panel Lab Routine BMI 30.0-30.9,adult Expected: 10/10/2024 (Approximate), Expires: 10/10/2025 Hemoglobin A1c Lab Routine BMI 30.0-30.9,adult Expected: 10/10/2024 (Approximate), Expires: 10/10/2025 Basic Metabolic Panel Lab Routine BMI 30.0-30.9,adult Expected: 10/10/2024 (Approximate), Expires: 10/10/2025 Hepatitis B surface antigen, EIA Lab Routine BMI 30.0-30.9,adult Expected: 10/10/2024 (Approximate), Expires: 10/10/2025 Chlamydia/N. Gonorrhoeae RNA, TMA, Urogenitial Microbiology Routine BMI 30.0-30.9,adult Ordered: 10/10/2024 HIV-1/2 Antigen and Antibodies, Fourth Generation, with Reflexes Lab Routine BMI 30.0-30.9,adult Expected: 10/10/2024 (Approximate), Expires: 10/10/2025 Hepatitis C Antibody with Reflex to HCV, RNA, Quantitative, Real-Time PCR Lab Routine BMI 30.0-30.9,adult Expected: 10/10/2024, Expires: 10/10/2025 RPR (Monitor) with Reflex to??Titer Lab Routine BMI 30.0-30.9,adult Expected: 10/10/2024, Expires: 10/10/2025 Hepatitis B Surface Antibody, Qualitative Lab Routine BMI 30.0-30.9,adult Expected: 10/10/2024 (Approximate), Expires: 10/10/2025 Hepatitis A Antibody, Total Lab Routine BMI 30.0-30.9,adult Expected: 10/10/2024 (Approximate), Expires: 10/10/2025 Hepatitis B Core Antibody, Total Lab Routine BMI 30.0-30.9,adult Expected: 10/10/2024 (Approximate), Expires: 10/10/2025 CBC auto differential Lab Routine BMI 30.0-30.9,adult Expected: 10/10/2024 (Approximate), Expires: 10/10/2025 Chlamydia/N. Gonorrhoeae RNA, TMA, Urogenitial Microbiology Routine Urinary frequency Ordered: 10/10/2024 Culture, Urine, Routine Microbiology Routine Urinary frequency Ordered: 10/10/2024 Scheduled Referrals Name Type Priority Associated Diagnoses Orde r Schedule Referral to Physical Medicine Rehab Outpatient Referral Routine Acute bilateral low back pain without sciatica Expected: 10/10/2024 (Approximate), Expires: 10/10/2025 documented as of this encounter Procedures Procedure Name Priority Date/Time Associated Diagnosis Comments POCT URINALYSIS DIPSTICK Routine 10/10/2024 12:29 PM EDT Urinary frequency XR LUMBAR SPINE COMPLETE 4+ VIEWS Routine 10/10/2024 12:28 PM EDT documented in this encounter Results * POCT Urinalysis (10/10/2024 12:29 PM [...] Media Lot # [id number] Lot# Expiration Date Urine 10/10/2024 12:2 9 PM EDT Luci Dumont DO POINT OF CARE TEST ENTER/CHARLIE T ORDERABLES Final Result * XR Lumbar Spine Complete 4+ Views (10/10/2024 12:28 PM EDT) Anatomical Region Laterality Modality Spine, L-spine Radiographic Sapna ging 10/10/2024 12:2 8 PM EDT Narrative 10/10/2024 1:15 PM EDT ?[facility] ?[address] ?[place] [address] ?XRay Report ? Signed ? Patient: John Lorenzo ?MR#: ?? [id number] ? : 1990 ?Acct:[id number] ? Age/Sex: 34 / M ?ADM Date: 10/10/24 ? Loc: HO.HHCX ? Attending Dr: Luci Dumont DO ? Ordering Physician: Luci Dumont DO ?? Date of Service: 10/10/24 ?? Procedure(s): XR lumbar spine 4V min ?? Accession Number(s): [id number] ? cc: Luci Dumont DO ? EXAMINATION: [...] DD/ 1228 ? TD/TT: 10/10/24 1230 ? Press Leader: ? Procedure Note Donjonoter, Image - 10/10/[address] [address] XRay Report Signed Patient: John LorenzoMR#: [id number] : 1990Acct:[id number] Age/Sex: 34 / MADM Date: 10/10/24 Loc: HO.HHCX Attending Dr: Luci Dumont DO Ordering Physician: Luci Dumont DO Date of Service: 10/10/24 Procedure(s): XR lumbar spine 4V min Accession Number(s): [id number] cc: Luci Dumont DO EXAMINATION: XR LUMBOSACRAL [...] Gustavo Cole MD 10/10/2024 01:12 PM EDT RP Dictated By: Gustavo Cole MD Signed By: <Electronically signed by Gustavo Cole MD in OV> 10/10/24 1312 DD/ 1228 TD/TT: 10/10/24 1230 Press Leader: Luci Dumont DO IMG XR PROCEDURES Final Resu lt documented in this encounter Visit Diagnoses Diagnosis Acute bilateral low back pain without sciatica- Primary Swelling of both lower extremities Urinary frequency BMI 30.0-30.9,adult documented in this encounter Additional Health Concerns Assessment Noted Time PHQ-9 Depression Total Score: 0 10/11/19 11:40 AM EDT documented as of this encounter Care Teams Tinsmith Apprentice Relationship Specialty Start Date End Date Luci Dumont DO [address] [place] [phone] PCP - General Family Medicine 07/12/18 documented as of this encounter
--- OUTSIDE RECORDS SUMMARY | 2024-10-10 14:38 | XMS_ITS | Encounter Summary ---
Author Organization [employer] Address [address] [place] [address] Care Team Providers Care Densitometer Reader Name Role Phone Luci Dumont DO Primary Care Provider + [phone] Reason for Visit * Reason Onset Date Comments Nurse Triage 10/10/2024 Encounter Details Date Type Department Care Team ([facility] st Contact Info) Description 10/10/2024 Telephone [facility] MEDICINE [address], [place] [phone] Luci Dumont DO [address] [place] [address] Nurse Triage Social History Tobacco Use Types Packs/Day Years [...] AM EDT documented as of this encounter Miscellaneous Notes * Telephone Encounter - Pau Irizarry RN - 10/10/2024 9:21 AM EDT No american sign language interpreter needed as 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 Call returned to [place] to triage below. Reports having bilateral lower leg edema since this morning. Per pt red color to skin. Pt reports skin feels warm to touch. Pt also having lower back pain x 2 weeks. Pt denies any pain radiating to glute or legs. Pt has not elevated legs since noted swelling. Pt having some SOB with both rest and exertion. Mild puffiness to face. Pt also reports having SCRUGGS. Used OTC Tylenol with mild relief. Pt alert, speaking in clear full sentences. Pt has not checked BP with kit. Pt advised of disposition, agrees to sick on site with PCP today. Pt provided new insurance information [facility] ID# [id number]. NEHEN states does not match. Confirmed with patient. Advised to contact insurance orHR rep to ensure correct associated with insurance before appt. Pt agrees. Protocol Used: Leg Swelling and Edema (Adult) Protocol-Based Disposition: Go to Office or Video Visit Now Future Appointments Date Time Provider Department Center 10/10/2024 11:30 AM Luci Dumont DO MEDICINE [facility] Positive Triage Question: * Difficulty breathing with exertion AND new-onset or getting worse * All higher-acuity triage questions were negative Care Advice Discussed: * Reasons To Call Back - Swelling becomes worse - You become worse * Telephone Encounter - Isiah Saul - 10/10/2024 9:05 AM EDT Symptoms: Leg Swelling - Not From Injury, Back Pain - Not From Injury Outcome: Transfer to a nurse or provider NOW! Reason: Trouble breathing The caller accepted this outcome. Contact pt at [phone] documented in this encounter Plan of Treatment Not on file documented as of this encounter Visit Diagnoses Not on filedocumented in this encounter Additional Health Concerns Assessment Noted Time PHQ-9 Depression Total Score: 0 10/11/19 25 11:40 AM EDT documented as of this encounter Care Teams Densitometer Reader Relationship Specialty Start Date End Date Luci Dumont DO [address] [place] [address] PCP - General Family Medicine 07/12/18 documented as of this encounter
[2024-10-10 16:11] LABS: MANUAL DIFF FLAG NO
[2024-10-10 16:37] LABS: Basophils Absolute Auto 0.1 X10*3/uL (0.0-0.2); Basophils Percent Auto 0.7 % (0-2); Eosinophils Absolute Auto 0.5 X10*3/uL (0.0-0.4); Hematocrit 50.6 % (42.0-52.0); Hemoglobin 17.3 g/dl (14.0-18.0); Imm Gran Abs Auto 0.04 X10*3/uL (0.00-0.03); Imm Gran Pct Auto 0.5 % (0.0-0.4); Lymphocytes Absolute Auto 2.7 X10*3/uL (1.2-4.9); Lymphocytes Percent Auto 34.8 % (20-40); Mean Corpuscular HGB Conc 34.2 g/dl (31.0-36.0); Mean Corpuscular Hemoglobin 31.5 pg (27.0-33.0); Mean Corpuscular Volume 92.2 fL (80.0-98.0); Mean Platelet Volume 9.2 fL (9.4-12.4); Monocytes Absolute Auto 0.5 X10*3/uL (0.1-1.2); Monocytes Percent Auto 6.5 % (2-11); Neutrophils Absolute Auto 3.9 x10*3/uL (2.0-8.3); Neutrophils Percent Auto 51.5 % (45-73); Platelet Count 389 X10*3/uL (160-400); Red Blood Count 5.49 X10*6/uL (4.60-5.80); Red Cell Distribution Width 12.2 % (11.0-16.0); White Blood Count 7.6 X10*3/uL (4.8-10.8)
[2024-10-10 17:55] LABS: Alanine Aminotransferase 41 U/L (0-40); Albumin Level 4.3 g/dL (3.5-5.0); Alkaline Phosphatase 82 U/L (39-117); Anion Gap 9 (12-20); Aspartate Amino Transferase 26 U/L (5-37); Bilirubin Direct 0.2 mg/dL (0.0-0.5); Bilirubin Total 0.4 mg/dL (0.0-1.0); Blood Urea Nitrogen 8 mg/dL (9-16); Calcium 9.3 mg/dL (8.4-10.2); Carbon Dioxide 28 mmol/L (22-29); Chloride 106 mmol/L (96-108); Cholesterol 184 mg/dL (<200); Estimated Glomerular Filt Rate > 60; Glucose Random 72 mg/dL (60-115); HDL Cholesterol 42 mg/dL (>40); LDL Cholesterol Calculated 111 mg/dL (<100); Potassium 3.8 mmol/L (3.3-5.1); Sodium 139 mmol/L (135-145); Triglycerides 155 mg/dL (<150)
[2024-10-10 18:02] LABS: Free T4 (Free Thyroxine) 0.88 ng/dL (0.71-1.85); Thyroid Stimulating Hormone 0.75 uIU/mL (0.32-4.0); Vitamin D 25-OH Total 29.4 ng/mL (>30)
[2024-10-10 18:28] LABS: Estimated Average Glucose 94 mg/dL; Hemoglobin A1C 136.2067 umol/L; Hemoglobin A1c % 4.9 % (<6.0); Total Hemoglobin (HGBA1C) 4455.0659 umol/L
[2024-10-11 08:06] LABS: Hepatitis A Antibody IgG Nonreactive (Nonreactive); ~Hepatitis A Antibody IgG 0.24 S/CO (0.00-0.99)
[2024-10-11 08:35] LABS: HBS Num1 1.52 mIU/mL (0-7.99); HBc Num1 0.08 S/CO (0.00-0.79); HBsAGNum1 0.34 S/CO (0.00-0.99); HIV AB/AG Nonreactive (Nonreactive); HIV Num 1 0.09 S/CO (0.00-0.99); Hepatitis B Core Antibody Nonreactive (Nonreactive); Hepatitis B Surface Antigen Negative (Negative); ~HepC Num1 0.11 S/CO (0.00-0.79); ~Hepatitis B Surface Antibody NONREACTIVE (Nonreactive); ~Hepatitis C Antibody Nonreactive (Nonreactive)
[2024-10-12 12:48] LABS: RPR Rapid Plasma Reagin NON-REACTIVE (NON-REACTIVE)
== END 2024-10-10 12:29 | disposition home or self-care (01) ==
LOC: HO.HHCX 12:28
PROVIDERS: Visit Provider Family Medicine
DX: M54.50 Low back pain, unspecified (principal); Z11.4 Encounter for screening for human immunodeficiency virus [HIV]; Z11.3 Encounter for screening for infections with a predominantly sexual mode of transmission
CPT/HCPCS: 36415; 72110; 80048; 80061; 80076; 82306; 83036; 84439; 84443; 85025; 86592; 86704; 86706; 86708; 86803; 87340; 87389

== ENCOUNTER → 2024-10-10 12:28 | Outpatient (BNV) | payer OTHER, SELFPAY | PROVIDERS: Visit Provider Radiology Diagnostic Radiology | DX: M54.59 Other low back pain (principal) | CPT/HCPCS: 72110 ==

== ENCOUNTER 2024-10-10 12:49 | Outpatient (REF) | payer SELFPAY ==
[2024-10-11 09:58] LABS: CT PCR NOT DETECTED (Not Detect.); NG PCR NOT DETECTED (Not Detect.)
== END 2024-10-10 12:50 | disposition home or self-care (01) ==
LOC: HO.HHCL 12:49
PROVIDERS: Visit Provider Family Medicine
DX: R35.0 Frequency of micturition (principal); Z68.30 Body mass index [BMI] 30.0-30.9, adult
CPT/HCPCS: 87086; 87491; 87591